=== PATIENT | male | born 1990 | race Caucasian/White ===

== ENCOUNTER 2018-04-26 16:49 | Emergency (ER) | payer SELFPAY ==
[~2018-04-26] VITALS: Ht 170.2 cm; Wt 76.2 kg
[2018-04-26 17:01] VITALS: BP 173/78
== END 2018-04-26 19:59 | disposition home or self-care (01) ==
LOC: ER 16:49
DX: B34.9 Viral infection, unspecified (principal)
CPT/HCPCS: 70450